=== PATIENT | male | born 1950 ===

== ENCOUNTER → 2016-12-24 | Outpatient (CLI) | payer BC ==
[~2016-12-24] VITALS: Ht 154.9 cm; Wt 70.0 kg
[~2016-12-24] MED LIST: CYAN25006 PO; LETR2.5 PO; METOPROLOL PO; PRED5 PO
[2016-12-24 11:50] VITALS: BP 146/98
== END | disposition home or self-care (01) ==
LOC: SRCNTR 11:35
PROVIDERS: ATTEND Internal Medicine Critical Care Medicine
DX: I10 Essential (primary) hypertension (principal); C50.929 Malignant neoplasm of unspecified site of unspecified male breast; D86.9 Sarcoidosis, unspecified; G47.33 Obstructive sleep apnea (adult) (pediatric); E66.9 Obesity, unspecified; J84.10 Pulmonary fibrosis, unspecified
CPT/HCPCS: G0463